=== PATIENT | female | born 1965 | race Caucasian/White ===

== ENCOUNTER 2018-01-10 16:03 | Outpatient (CLI) | payer OTHER ==
[2018-01-10 18:52] LABS: BASOPHILS # (AUTO) 0.1 10^3/uL (0.0-0.1); BASOPHILS % (AUTO) 0.9 %; EOSINOPHILS # (AUTO) 0.1 10^3/uL (0.0-0.7); EOSINOPHILS % (AUTO) 2.5 %; HGB - HEMOGLOBIN 12.6 g/dL (12.0-16.0); LYMPHOCYTES # (AUTO) 2.5 10^3/uL (1.5-3.5); LYMPHOCYTES % (AUTO) 42.2 %; MEAN CORPUSCULAR HEMOGLOBIN 27.6 pg (27.0-31.0); MEAN CORPUSCULAR HGB CONC 32.5 g/dL (32.0-36.0); MEAN CORPUSCULAR VOLUME 84.9 fL (81.0-99.0); MEAN PLATELET VOLUME 7.4 fL (7.9-10.8); MONOCYTES # (AUTO) 0.4 10^3/uL (0.0-1.0); MONOCYTES % (AUTO) 7.3 %; NEUTROPHILS # (AUTO) 2.7 10^3/uL (1.5-6.6); NEUTROPHILS % (AUTO) 47.1 %; PLT - PLATELET COUNT 379 10^3/uL (130-450); RED BLOOD COUNT 4.57 10^6/uL (4.20-5.40); RED CELL DISTRIBUTION WIDTH 14.8 % (12.0-15.0); WHITE BLOOD COUNT 5.8 x10^3/uL (4.8-10.8)
[2018-01-10 19:11] LABS: ALBUMIN 4.3 g/dL (3.2-5.5); ALBUMIN/GLOBULIN RATIO 1.3 (1.0-2.2); ALKALINE PHOSPHATASE 44 IU/L (42-121); ALT ALANINE AMINOTRANSFERASE 30 IU/L (10-60); AST ASPARTATE AMINOTRANSFERASE 22 IU/L (10-42); BILIRUBIN,TOTAL 0.3 mg/dL (0.2-1.0); BUN - BLOOD UREA NITROGEN 16 mg/dL (6-20); CALCIUM 9.4 mg/dL (8.5-10.3); CARBON DIOXIDE - CO2 26 mmol/L (21-32); CHLORIDE 103 mmol/L (101-111); CHOL/HDL RATIO 3.8 (<4.4); CHOLESTEROL 226 mg/dL; CREATININE 0.7 mg/dL (0.4-1.0); GFR - MDRD 87 (>89); GLUCOSE 94 mg/dL (70-100); HDL CHOLESTEROL 60 mg/dL; LDL CHOLESTEROL,CALCULATED 147 mg/dL; LDL/HDL RATIO 2.5 (<4.4); SODIUM 137 mmol/L (135-145); TOTAL PROTEIN 7.6 g/dL (6.7-8.2); VLDL CHOLESTEROL 19 mg/dL
[2018-01-10 19:28] LABS: HB2 TOTAL 13.5 g/dL; HEMOGLOBIN A1C 0.49 g/dL; HEMOGLOBIN A1C % 5.5 % (4.6-6.2)
== END 2018-01-10 16:04 ==
LOC: LAB.WCP 16:03
PROVIDERS: ATTEND Family Medicine
DX: Z00.00 Encounter for general adult medical examination without abnormal findings (principal)
CPT/HCPCS: 36415; 80053; 80061; 83036; 83721; 84443; 85025

== ENCOUNTER 2018-02-16 12:40 | Outpatient (CLI) | payer OTHER ==
--- NOTE | 2018-02-16 14:53 | Mammography Report ---
DIAGNOSTIC BILATERAL MAMMOGRAM: 02/16/2018 CLINICAL INDICATION: A 53-year-old with a history of bilateral benign biopsies, tenderness on clinical exam, right lower inner quadrant. COMPARISON: 01/24/2016, 01/04/2015, 01/01/2014. TECHNIQUE: Routine CC, laterally exaggerated CC, MLO views, right true lateral view. FINDINGS: The patient could not identify a site of maximal tenderness at the time of the examination, so no marker was placed. The breasts again demonstrate heterogeneously dense fibroglandular parenchyma bilaterally. Coarse and punctate, typically benign calcifications are present. Biopsy changes in both breasts are stable. No suspicious masses, clustered microcalcifications, or regions of architectural distortion are identified. Specifically, no mammographic abnormality is seen in the 4 o'clock position of the right breast 2 cm from the nipple at the site of tenderness noted on the requisition. IMPRESSION: BENIGN FINDINGS. RECOMMENDATION: Routine annual screening unless otherwise clinically indicated. BIRADS CATEGORY - 2 benign findings. STANDARD QUALIFYING STATEMENTS: 1. This examination was reviewed with the aid of Computer-Aided Detection (CAD). 2. A negative or benign imaging report should not delay biopsy if clinically suspicious findings are present. Consider surgical consultation if warranted. More than 5% of cancers are not identified by imaging. 3. Dense breasts may obscure an underlying neoplasm. TD: 02/16/2018 14:52
== END 2018-02-16 12:41 | disposition home or self-care (01) ==
LOC: DI 12:40
PROVIDERS: ATTEND Family Medicine
DX: N64.4 Mastodynia (principal)
CPT/HCPCS: 77066

== ENCOUNTER 2018-07-08 07:02 | Outpatient (CLI) | payer OTHER ==
[2018-07-08 13:07] LABS: HB2 TOTAL 14.2 g/dL; HEMOGLOBIN A1C 0.5 g/dL; HEMOGLOBIN A1C % 5.4 % (4.6-6.2)
== END 2018-07-08 07:03 | disposition home or self-care (01) ==
LOC: LAB.WCP 07:02
PROVIDERS: ATTEND Family Medicine
DX: R73.01 Impaired fasting glucose (principal)
CPT/HCPCS: 36415; 83036

== ENCOUNTER 2019-02-22 07:13 | Outpatient (CLI) | payer OTHER ==
[2019-02-22 13:32] LABS: BASOPHILS % (AUTO) 0.9 %; EOSINOPHILS # (AUTO) 0.2 10^3/uL (0.0-0.7); EOSINOPHILS % (AUTO) 4.4 %; HGB - HEMOGLOBIN 13.7 g/dL (12.0-16.0); LYMPHOCYTES # (AUTO) 2.1 10^3/uL (1.5-3.5); LYMPHOCYTES % (AUTO) 40.3 %; MEAN CORPUSCULAR HEMOGLOBIN 28.4 pg (27.0-31.0); MEAN CORPUSCULAR VOLUME 85.9 fL (81.0-99.0); MEAN PLATELET VOLUME 8.2 fL (7.9-10.8); MONOCYTES # (AUTO) 0.4 10^3/uL (0.0-1.0); MONOCYTES % (AUTO) 8.1 %; NEUTROPHILS # (AUTO) 2.5 10^3/uL (1.5-6.6); NEUTROPHILS % (AUTO) 46.3 %; PLT - PLATELET COUNT 344 10^3/uL (130-450); RED BLOOD COUNT 4.84 10^6/uL (4.20-5.40); RED CELL DISTRIBUTION WIDTH 14.6 % (12.0-15.0); WHITE BLOOD COUNT 5.3 x10^3/uL (4.8-10.8)
[2019-02-22 14:04] LABS: CALCIUM 9.3 mg/dL (8.5-10.3); CARBON DIOXIDE - CO2 25 mmol/L (21-32); CHLORIDE 105 mmol/L (101-111); GLUCOSE 92 mg/dL (70-100); SODIUM 138 mmol/L (135-145)
[2019-02-22 14:49] LABS: ALBUMIN 4.2 g/dL (3.2-5.5); ALBUMIN/GLOBULIN RATIO 1.5 (1.0-2.2); ALKALINE PHOSPHATASE 46 IU/L (42-121); ALT ALANINE AMINOTRANSFERASE 28 IU/L (10-60); AST ASPARTATE AMINOTRANSFERASE 22 IU/L (10-42); BILIRUBIN,TOTAL 0.8 mg/dL (0.2-1.0); BUN - BLOOD UREA NITROGEN 24 mg/dL (6-20); CHOL/HDL RATIO 3.9 (<4.4); CHOLESTEROL 241 mg/dL; CREATININE 0.7 mg/dL (0.4-1.0); GFR - MDRD 87 (>89); HDL CHOLESTEROL 62 mg/dL; LDL CHOLESTEROL,CALCULATED 159 mg/dL; LDL/HDL RATIO 2.6 (<4.4); VLDL CHOLESTEROL 20 mg/dL
[2019-02-22 14:55] LABS: HB2 TOTAL 14.3 g/dL; HEMOGLOBIN A1C 0.52 g/dL; HEMOGLOBIN A1C % 5.5 % (4.6-6.2)
== END 2019-02-22 07:14 | disposition home or self-care (01) ==
LOC: LAB.WCP 07:13
PROVIDERS: ATTEND Family Medicine
DX: Z00.00 Encounter for general adult medical examination without abnormal findings (principal); R73.01 Impaired fasting glucose; Z13.89 Encounter for screening for other disorder
CPT/HCPCS: 36415; 80053; 80061; 83036; 83721; 84443; 85025; 86762; 86765; 86787

== ENCOUNTER 2019-03-03 13:02 | Outpatient (CLI) | payer OTHER ==
--- NOTE | 2019-03-06 09:19 | Mammography Report ---
Reason: SCREENING MAMMO Procedure Date: 03/03/2019 Accession Number: [id number] / [id number] Procedure: ALEXANDRO - Screening Mammo Dig Bilat CPT Code: FULL RESULT: EXAM: Screening Mammo Dig Bilat DATE: 03/03/2019 3:24 PM CLINICAL HISTORY: Routine screening. No reported personal history of breast cancer. Family history of breast cancer in mother at age 65 a paternal grandmother age 40 and paternal aunt age 68. TECHNIQUE: (B) - Bilateral CC and MLO views were obtained. COMPARISON: 02/16/2018 through 01/01/2014 PARENCHYMAL PATTERN: (D) - The breasts demonstrate heterogeneously dense fibroglandular parenchyma bilaterally. FINDINGS: Right breast: Stable biopsy marker in the central lateral breast. Stable grouping of mixed coarse and amorphous calcifications in the upper outer breast. There has been interval waning of oval partially circumscribed/partially obscured margin breast masses over serial mammograms consistent with involuting cysts. No suspicious masses, calcifications or areas of distortion. Left breast: There are no suspicious masses, calcifications, or areas of distortion. IMPRESSION: Right breast: Benign. BI-RADS Category 2. Recommend annual screening mammography. Left breast: Negative. BI-RADS Category 1 recommend annual screening mammography. RECOMMENDATION: (ANNUAL) - Recommend routine annual screening mammography. Given family history, patient may be at increased risk for development of breast cancer. Formal risk assessment with a genetic counselor should be considered; patient may benefit from advanced screening practices and/or risk reduction strategies if there is sufficient assessed risk. BI-RADS CATEGORY: (2) - Benign Findings. STANDARD QUALIFYING STATEMENTS: 1. This examination was not reviewed with the aid of Computer-Aided Detection (CAD). 2. A negative or benign imaging report should not preclude biopsy if clinically suspicious findings are present. 3. Dense breasts may obscure an underlying neoplasm. 4. This examination was reviewed without the aid of 3D breast imaging (tomosynthesis).
== END 2019-03-03 13:03 | disposition home or self-care (01) ==
LOC: DI 13:02
DX: Z12.31 Encounter for screening mammogram for malignant neoplasm of breast (principal); Z80.3 Family history of malignant neoplasm of breast
CPT/HCPCS: 77067

== ENCOUNTER 2019-03-03 13:03 | Outpatient (CLI) | payer OTHER ==
--- NOTE | 2019-03-07 14:24 | DEXA Report ---
Reason: BONE DISORDER Procedure Date: 03/03/2019 Accession Number: [id number] / [id number] Procedure: DEX - Dexa Spine and/or Hip CPT Code: FULL RESULT: EXAM: Dexa Spine and/or Hip DATE: 03/03/2019 2:04 PM CLINICAL HISTORY: BONE DISORDER TECHNIQUE: Dual energy x-ray absorptiometry (DXA) was performed on a [employer] System. Regions measured are the AP Spine, femoral neck, and if needed forearm. COMPARISON: None. In accordance with the International Society for Clinical Densitometry (ISCD) guidelines, data from previous exams may be reanalyzed using current recommendations and techniques. This is done to allow a more accurate basis for comparison with the current study. FINDINGS: The data for the lumbar spine is as follows: BMD (g/cm/cm) T-SCORE Z-SCORE REGION L1 1.151 0.2 0.8 L2 1.206 0.1 0.7 L3 1.206 0.1 0.7 L4 1.134 -0.6 0.1 TOTAL 1.172 -0.1 0.6 NOTE: All evaluable vertebrae are used for classification The data for the hip is as follows: BMD (g/cm/cm) T-SCORE Z-SCORE REGION Neck 0.922 -0.8 0.1 TOTAL 1.000 -0.1 0.5 NOTE: The femoral neck or total proximal femur, whichever is lowest, is used for classification. IMPRESSION: THE WHO CLASSIFICATION BASED ON THE INTERNATIONAL REFERENCE STANDARD IS NORMAL. THE FRACTURE RISK IS NOT INCREASED. RECOMMENDATION: Patients with diagnosis of osteoporosis or osteopenia should have regular bone mineral density assessment. For those eligible for Medicare, routine testing is allowed once every 2 years. Testing frequency can be increased for patients who have rapidly progressing disease or for those who are receiving medical therapy to restore bone mass. COMMENT: World Health Organization (WHO) definitions for osteoporosis and osteopenia: NORMAL BMD: T-score at -1.0 or higher, fracture risk is low OSTEOPENIA BMD: T-score between -1.0 and -2.5, fracture risk is increased. OSTEOPOROSIS BMD: T-score at -2.5 or lower, fracture risk is high. National Osteoporosis Foundation recommends: 1. Obtain adequate dietary calcium (at least 1200 mg per day) and vitamin D (400-800 international units per day). 2. Participate, as appropriate, in regular weightbearing and muscle-strengthening exercise. 3. Avoid tobacco use and reduce alcohol and caffeine intake. 4. For more detailed information see the website at www.NOF.org.
== END 2019-03-03 13:04 | disposition home or self-care (01) ==
LOC: DI 13:03
PROVIDERS: ATTEND Family Medicine
DX: M89.9 Disorder of bone, unspecified (principal)
CPT/HCPCS: 77080

== ENCOUNTER 2019-10-30 08:00 | Outpatient (CLI) | payer OTHER ==
[2019-10-30 12:12] LABS: BASOPHILS # (AUTO) 0.1 10^3/uL (0.0-0.1); BASOPHILS % (AUTO) 1.2 %; EOSINOPHILS # (AUTO) 0.2 10^3/uL (0.0-0.7); EOSINOPHILS % (AUTO) 3.8 %; HGB - HEMOGLOBIN 13.5 g/dL (12.0-16.0); LYMPHOCYTES # (AUTO) 1.8 10^3/uL (1.5-3.5); LYMPHOCYTES % (AUTO) 30.9 %; MEAN CORPUSCULAR HEMOGLOBIN 28.7 pg (27.0-31.0); MEAN CORPUSCULAR HGB CONC 32.5 g/dL (32.0-36.0); MEAN CORPUSCULAR VOLUME 88.5 fL (81.0-99.0); MEAN PLATELET VOLUME 9.4 fL (7.9-10.8); MONOCYTES # (AUTO) 0.7 10^3/uL (0.0-1.0); MONOCYTES % (AUTO) 11.3 %; NEUTROPHILS # (AUTO) 3.1 10^3/uL (1.5-6.6); NEUTROPHILS % (AUTO) 52.6 %; PLT - PLATELET COUNT 354 10^3/uL (130-450); RED CELL DISTRIBUTION WIDTH 14.1 % (12.0-15.0); WHITE BLOOD COUNT 5.9 x10^3/uL (4.8-10.8)
[2019-10-30 12:17] LABS: HB2 TOTAL 13.4 g/dL; HEMOGLOBIN A1C 0.55 g/dL; HEMOGLOBIN A1C % 5.9 % (4.6-6.2)
[2019-10-30 12:20] LABS: ALBUMIN 4.2 g/dL (3.2-5.5); ALBUMIN/GLOBULIN RATIO 1.3 (1.0-2.2); BILIRUBIN,TOTAL 0.8 mg/dL (0.2-1.0); CALCIUM 9.1 mg/dL (8.5-10.3); CREATININE 0.6 mg/dL (0.4-1.0); TOTAL PROTEIN 7.4 g/dL (6.7-8.2)
== END 2019-10-30 23:59 | disposition home or self-care (01) ==
LOC: LAB.WCP 08:00
PROVIDERS: ATTEND Family Medicine
DX: C54.1 Malignant neoplasm of endometrium (principal); R73.01 Impaired fasting glucose
CPT/HCPCS: 36415; 80053; 83036; 85025

== ENCOUNTER 2020-05-07 14:30 | Outpatient (CLI) | payer OTHER ==
--- NOTE | 2020-05-07 15:06 | SLEEP CARE CONSULTATION ---
Information from patient questionnaire entered by Meg Mccurdy. I have reviewed and concur with the information entered by Meg Mccurdy. This document represents the service I personally performed and the decisions made by me, Milan Garcia MD, [facility]. History of Present Illness Service Date and Time: 05/07/2020 1430 Reason for Visit: New patient Chief Complaint: reports: Unrefreshed sleep, Snoring, Observed pauses in breathing, Frequent awakenings at night Duration of Symptoms: 20-25 years Usual bedtime: 2100 Time it takes to fall asleep: 15 minutes Snores at night: Yes Observed to quit breathing while asleep: Yes Sleeps alone due to snoring: No Number of times waking at night: 2-3 Reasons for waking at night: reports: Bathroom Toss, Turn, or Twitch while sleeping: Yes Recalls having dreams: Yes (lots) Usually gets out of bed at: 0500 Feels refreshed in the morning: No (sometimes) Morning headache: Yes (occassionally) Sleepy or fatigued during the day: Yes (sometimes) Ever fallen asleep while driving: Yes Takes day naps: No Dreams during day naps: Yes Prior sleep studies: Yes Year and Where: [facility] Additional HPI information: I had the pleasure of seeing Ms. Figueroa today regarding the possibility of her having a sleep disorder. As you know, she is a 55 year old lady who complains of loud snore, observed apneas, frequent awakenings, and unrefreshed sleep for many years. She had an in-laboratory polysomnography about 15 years ago at [facility] but never was informed of the results. She occasionally wakes up from her own snore but never from choking. She complains of excessive daytime sleepiness. Her [place] Sleepiness Scale score is 8. Her sister and brother have obstructive sleep apnea-hypopnea and use CPAPs. She had septoplasty but still has occasional nasal congestion at night requiring mouth breathing. 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 Patient is and lives in [place]. Have you smoked in the past 12 months: No Alcohol use: Yes Alcohol amount and frequency: 1-2 for special occassions Caffeine use: Yes Caffeine amount and frequency: 1 cup coffee/day Family History Family history of sleep disordered breathing: Yes Family Hx Sleep Apnea: Father: Snoring, Sibling: Snoring Allergies and Home Medications Drug allergies reviewed: Yes Home medication list reviewed: Yes Review of Systems Weight gain over past 5 years: 2-3 Cardiovascular: denies: high blood pressure, palpitations, chest pain, irregular heart rate or pulse, leg or foot swelling, have to sleep sitting up, other Respiratory: reports: other (chronic sinus) Gastrointestinal: denies: heartburn, difficulty swallowing, nausea, vomitting, diarrhea, abdominal pain, other Urinary: denies: incontinence, frequency, urgency, impotence, other Neurological: reports: headaches Psychiatric: denies: Attention Deficit Hyperactivity, anxiety, depression, mood disorder, claustrophobia, other Ear/Nose/Throat: reports: sinus problems, wisdom teeth removed Endocrine: reports: too hot or cold Musculoskeletal: denies: joint pain, neck pain, back pain, joint swelling, muscle pain or cramping, mobility problems, other Physical Exam Vital signs obtained and entered by: Detailed physical exam was not performed to comply with the COVID-19 precau Height: 5 ft 6 in Weight: 160 lb Body Mass Index: 25.8 BMI Classification: Overweight Impression and Plan IMPRESSION: 1. Obstructive Sleep Apnea-Hypopnea Syndrome, as suggested by history of loud and irregular snoring, observed cessation of breath while asleep, unrefreshed sleep, and daytime hypersomnolence. Narrow oropharynx and obesity are common predisposing factors for obstructive sleep apnea-hypopnea syndrome. Pathophys iology of sleep-disordered breathing was discussed. I recommend proceeding to polysomnography to confirm the diagnosis and to assess severity. If she has significant sleep disordered breathing, a manual CPAP titration study will also be performed to find the optimal treatment pressure. I informed the patient of what the sleep studies involve and after some discussion, she agreed to proceed. Plan: 1. Schedule an in-laboratory polysomnography + manual CPAP titration study. 2. Avoid long distance driving or when feeling sleepy. 3. Avoid alcohol, sedative and muscle relaxant around bedtime. 4. Attempt to lose weight. 5. Return in 1 to 2 weeks after the study to discuss results and initiate therapy. Time Spent with Patient (minutes): 15
== END 2020-05-07 14:31 | disposition home or self-care (01) ==
LOC: SC 14:30
PROVIDERS: ATTEND Internal Medicine Pulmonary Disease
DX: G47.10 Hypersomnia, unspecified (principal); R06.83 Snoring; G47.8 Other sleep disorders; R06.81 Apnea, not elsewhere classified; E66.3 Overweight; Z68.25 Body mass index [BMI] 25.0-25.9, adult
CPT/HCPCS: 99203; 99212

== ENCOUNTER → 2020-06-07 | Outpatient (CLI) | payer OTHER | LOC: SC 19:30 | PROVIDERS: ATTEND Internal Medicine Pulmonary Disease | DX: G47.33 Obstructive sleep apnea (adult) (pediatric) (principal) | CPT/HCPCS: 95806 ==

== ENCOUNTER 2020-06-18 14:12 | Outpatient (CLI) | payer OTHER ==
--- NOTE | 2020-06-18 14:40 | SLEEP CARE CONSULTATION ---
Information from patient questionnaire entered by Kati Pennington. I have reviewed and concur with the information entered by Kati Pennington. This document represents the service I personally performed and the decisions made by me, Milan Garcia MD, [facility]. History of Present Illness Service Date and Time: 06/18/2020 1412 Initial [place] Sleepiness Scale score: 8 (in 2019) Additional HPI information: HPI: Ms. Figueroa returns for follow up of the home sleep apnea test (HSAT) she had on 06/07/2020. The test showed moderate obstructive sleep apnea-hypopnea with an AHI of 21 and tyler oxygen saturation of 81%. The respiratory events occurred almost exclusively during supine sleep. Heart rate was within normal limits. The patient was informed of these findings. I explained to her the pathophysiology behind obstructive sleep apnea. We then spent quite a bit of time discussing different treatment options. For mild obstructive sleep apnea, surgery and oral appliance are alternatives to nasal CPAP therapy but in moderate or severe cases, nasal CPAP is the most effective and reliable treatment. After some discussion, she opted to go with the nasal CPAP therapy. I explained to her how CPAP machine works and what to expect when using the machine. She is encouraged to use CPAP every night especially in the first 2 to 3 nights in order to get used to it. She is somewhat familiar with the treatment because her brother and sister both use CPAPs. Sleep Study - Results Type of Sleep Study: Home sleep study Prior sleep studies: Yes Year and Where: [facility] Allergies and Home Medications Drug allergies reviewed: Yes Home medication list reviewed: Yes Review of Systems Review of systems same as previous: Yes Physical Exam Vital signs obtained and entered by: To minimize the risk of COVID-19 exposure, detailed exam was not performed. Height: 5 ft 6 in Impression and Plan IMPRESSION: 1. Obstructive Sleep Apnea-Hypopnea Syndrome, moderate, associated with mild hypoxemia. Most likely this is the cause of the patients symptoms of unrefreshed sleep, and excessive daytime sleepiness. As mentioned above, the patient will be started on autoCPAP set at 4 - 12 cmH2O. Depending on her response and compliance she may be brought back for an overnight CPAP titration study. PLAN: 1. Prescription made for an autoCPAP with heated humidifier and related supplies. 2. Be careful when driving until her sleepiness resolves completely on nasal CPAP therapy. 3. Avoid sleeping supine if not using the CPAP. 4. Return in one month for follow up. I will assess her response and compliance at that time. Visit Type: In Office Provider Statement: I spent 100% of the Face to Face Visit with the patient with greater than 50% spent counseling the patient and coordination of care.
== END 2020-06-18 14:13 | disposition home or self-care (01) ==
LOC: SC 14:12
PROVIDERS: ATTEND Internal Medicine Pulmonary Disease
DX: G47.33 Obstructive sleep apnea (adult) (pediatric) (principal)
CPT/HCPCS: 99212; 99213

== ENCOUNTER 2020-08-27 09:28 | Outpatient (CLI) | payer OTHER ==
--- NOTE | 2020-08-27 12:49 | SLEEP CARE CONSULTATION ---
Information from patient questionnaire entered by Kati Pennington. I have reviewed and concur with the information entered by Kati Pennington. This document represents the service I personally performed and the decisions made by me, Milan Garcia MD, [facility]. History of Present Illness Service Date and Time: 08/27/2020927 Previous diagnosis: Moderate, Obstructive Sleep Apnea-Hypopnea Syndrome AHI: 21.0 (in 2019) Reason for follow up: first compliance Equipment type: CPAP Equipment obtained from: Other ([employer]) Prior sleep studies: Yes Year and Where: [facility], 2019 - [facility] HPI additional information: HPI: Ms. Figueroa returns today to follow up on the nasal CPAP therapy. She was diagnosed to have moderate obstructive sleep apnea-hypopnea syndrome. The patient wears with a ResMed F20 full face mask. [employer] is her durable medical supplier. She reports using the device nightly and all through the night. The compliance data show usage in 30 out of the past 30 nights, averaging 6.7 hours a night. The > 4 hour compliance rate for the one month period between 07/08 and 08/06/2020 is 93%. She complained of no particular problem with the device such as soreness on the face, dry nose, epistaxis, nasal congestion or headache. She thinks that the pressure of 4 12 cmH2O is comfortable. On the CPAP therapy she notices improvement in her sleep quality, and that she wakes up feeling fresher in the morning and more awake/alert during the day. The [place] Sleepiness Scale score 2. The average residual AHI is 9.4; and air leak, 0.4 L/min. The residual AHI increased the past month and was half central and half obstructive. The 90th percentile pressure is 11 cmH2O. CPAP Compliance Data - Data Reviewed with Patient Average duration of nightly device use: 6.7 Compliance rate %: 93 (initial 30 days)(last 30 - 67%) Current pressure setting (cmH2O): 4-12 Humidity settin Average residual AHI: 9.4 Subjective Initial [place] Sleepiness Scale score: 8 (in 2019) Allergies and Home Medications Drug allergies reviewed: Yes Home medication list reviewed: Yes Review of Systems Review of systems same as previous: Yes Physical Exam Vital signs obtained and entered by: To minimize the risk of COVID-19 exposure, detailed exam was not performed. Height: 5 ft 6 in Weight: 160 lb Body Mass Index: 25.8 BMI Classification: Overweight Impression and Plan IMPRESSION: 1. Obstructive Sleep Apnea-Hypopnea Syndrome, moderate, with the patient doing well on nasal CPAP therapy. She has good compliance and significant clinical improvement. The current pressure appears ineffective but comfortable. The increase in the residual AHI most likely is due to her taking opioid pain medication for her leg. However, because half of the residual apneas are obstructive, I will raise the pressure range. Once she no longer requires the pain medication, the central apneas probably will subside. PLAN: 1. Raise autoCPAP to 6 - 15 cmH2O. 2. Return for a follow up in 1 month to recheck the residual AHI. If still high, a manual CPAP/BiPAP titration study will be ordered. Follow up recommended for: Weight management Visit Type: In Office Time Spent with Patient (minutes): 15 Provider Statement: I spent 100% of the Face to Face Visit with the patient with greater than 50% spent counseling the patient and coordination of care.
== END 2020-08-27 09:29 | disposition home or self-care (01) ==
LOC: SC 09:28
PROVIDERS: ATTEND Internal Medicine Pulmonary Disease
DX: G47.33 Obstructive sleep apnea (adult) (pediatric) (principal); E66.3 Overweight; Z68.25 Body mass index [BMI] 25.0-25.9, adult
CPT/HCPCS: 99212; 99213

== ENCOUNTER 2020-09-24 10:05 | Outpatient (CLI) | payer OTHER ==
--- NOTE | 2020-09-24 11:00 | SLEEP CARE CONSULTATION ---
Information from patient questionnaire entered by Kati Pennington. I have reviewed and concur with the information entered by Kati Pennington. This document represents the service I personally performed and the decisions made by me, Milan Garcia MD, [facility]. History of Present Illness Service Date and Time: 09/24/2020 1005 Previous diagnosis: Moderate, Obstructive Sleep Apnea-Hypopnea Syndrome AHI: 21.0 (in 2019) Reason for follow up: one month (with pressure change) Equipment type: CPAP Equipment obtained from: Other ([facility] [facility]) Mask style: Full face Prior sleep studies: Yes Year and Where: [facility], 2019 - [facility] ([facility]) HPI additional information: HPI: Ms. Figueroa returns today to follow up on the nasal CPAP therapy after the pressure increase a month ago. She was diagnosed to have moderate obstructive sleep apnea-hypopnea syndrome. The patient wears with a ResMed F20 full face mask. [employer] is her durable medical supplier. She reports using the device nightly but not all night because of her recent foot surgery. The compliance data show usage in 29 out of the past 30 nights, averaging 3.9 (was 6.7) hours a night. The > 4 hour compliance rate for the one month period 27%. She complained of dry mouth but no particular problem with the device such as soreness on the face, epistaxis, nasal congestion or headache. Her heated humidifier still is set at the factory setting of auto and 4. She thinks that the pressure of 6 15 (raised from 4 12) cmH2O is comfortable. On the CPAP therapy she notices improvement in her sleep quality, and that she wakes up feeling fresher in the morning and more awake/alert during the day. The [place] Sleepiness Scale score 2. The average residual AHI is 5.8 (was 9.4); and air leak, 0.1 L/min. The residual AHI is mostly obstructive. The 90th percentile pressure is 11 cmH2O. CPAP Compliance Data - Data Reviewed with Patient Average duration of nightly device use: 3 hr 4 min Compliance rate %: 23 Current pressure setting (cmH2O): 6-15 Humidity settin Average residual AHI: 5.8 Subjective Patient concerns: reports: mask discomfort, dry mouth, nose, throat Current pressure setting perceived as: comfortable Initial [place] Sleepiness Scale score: 8 (in 2020) Current [place] Sleepiness Scale score: 2 Allergies and Home Medications Drug allergies reviewed: Yes Home medication list reviewed: Yes Review of Systems Review of systems same as previous: Yes Physical Exam Vital signs obtained and entered by: To minimize the risk of COVID-19 exposure, detailed exam was not performed. Height: 5 ft 6 in Weight: 150 lb Body Mass Index: 24.2 BMI Classification: Healthy weight Impression and Plan IMPRESSION: 1. Obstructive Sleep Apnea-Hypopnea Syndrome, moderate, with the patient doing fairly well on nasal CPAP therapy. She has poor compliance but significant clinical improvement. The current pressure appears much more effective and comfortable. The increase in the residual AHI most likely is due to her taking opioid pain medication for her leg. However, because she has not been using the CPAP adequately, I will not change the pressure at this time. I will recheck in one month. PLAN: 1. Leave autoCPAP at 6 - 15 cmH2O. 2. Heated humidifier turned up from 4 to 5 in manual mode. 3. Return for a follow up in 1 month to recheck the residual AHI. If still high, a manual CPAP/BiPAP titration study will be ordered. Visit Type: In Office Time Spent with Patient (minutes): 15 Provider Statement: I spent 100% of the Face to Face Visit with the patient with greater than 50% spent counseling the patient and coordination of care.
== END 2020-09-24 10:06 | disposition home or self-care (01) ==
LOC: SC 10:05
PROVIDERS: ATTEND Internal Medicine Pulmonary Disease
DX: G47.33 Obstructive sleep apnea (adult) (pediatric) (principal)
CPT/HCPCS: 99212; 99213

== ENCOUNTER 2020-10-28 09:49 | Outpatient (CLI) | payer OTHER ==
--- NOTE | 2020-10-28 12:47 | SLEEP CARE CONSULTATION ---
Information from patient questionnaire entered by Kati Penningtno. I have reviewed and concur with the information entered by Kati Pennington. This document represents the service I personally performed and the decisions made by me, Milan Garcia MD, [facility]. History of Present Illness Service Date and Time: 10/28/2020 0949 Previous diagnosis: Moderate, Obstructive Sleep Apnea-Hypopnea Syndrome AHI: 21.0 (in 2019) Reason for follow up: one month Equipment type: CPAP Equipment obtained from: Other ([email or web address] [facility]) Mask style: Full face Mask brand: Resmed (F-20) Prior sleep studies: Yes Year and Where: [facility], 2019 - [facility] ([facility]) HPI additional information: HPI: Ms. Figueroa returns today to follow up on the nasal CPAP therapy after the pressure increase a month ago. She was diagnosed to have moderate obstructive sleep apnea-hypopnea syndrome. The patient wears with a ResMed F20 full face mask. [employer] is her durable medical supplier. She asked to return for a 1-month follow up because her residual AHI was still high at 5.8. She continues to use the device every night and all night. The compliance data show usage in 30 out of the past 30 nights, averaging 5 (was 6.7) hours a night. The > 4 hour compliance rate for the one month period 83%. She complained of no particular problem with the device such as soreness on the face, epistaxis, nasal congestion or headache. She thinks that the pressure of 6 15 (raised from 4 12) cmH2O is comfortable. On the CPAP therapy she notices improvement in her sleep quality, and that she wakes up feeling fresher in the morning and more awake/alert during the day. The [place] Sleepiness Scale score 1. No snore while wearing the CPAP. The average residual AHI is 6.2 (was 9.4), mostly obstructive apneas; and air leak, 0 L/min. The residual AHI is mostly obstructive. The 90th percentile pressure is 12.8 cmH2O. She has quit taking the pain medication for her leg. CPAP Compliance Data - Data Reviewed with Patient Average duration of nightly device use: 5 hr 2 min Compliance rate %: 83 Current pressure setting (cmH2O): 6-15 Humidity settin Average residual AHI: 6.2 Subjective Initial [place] Sleepiness Scale score: 8 (in 2019) Current [place] Sleepiness Scale score: 1 Allergies and Home Medications Drug allergies reviewed: Yes Home medication list reviewed: Yes Review of Systems Review of systems same as previous: Yes Physical Exam Vital signs obtained and entered by: To minimize the risk of COVID-19 exposure, detailed exam was not performed. Height: 5 ft 6 in Weight: 150 lb Body Mass Index: 24.2 BMI Classification: Healthy weight Impression and Plan IMPRESSION: 1. Obstructive Sleep Apnea-Hypopnea Syndrome, moderate, with the patient doing well on nasal CPAP therapy. She now has good compliance and significant clinical improvement. The current pressure appears slightly ineffective still but comfortable. For the slightly elevated residual AHI, I will increase the pressure range further. PLAN: 1. Increased autoCPAP to 8 - 15 cmH2O via the modem. 2. Return for a follow up in 2 months to recheck the residual AHI. If still high, a manual CPAP/BiPAP titration study will be ordered. Visit Type: In Office Time Spent with Patient (minutes): 15 Provider Statement: I spent 100% of the Face to Face Visit with the patient with greater than 50% spent counseling the patient and coordination of care.
== END 2020-10-28 09:50 | disposition home or self-care (01) ==
LOC: SC 09:49
PROVIDERS: ATTEND Internal Medicine Pulmonary Disease
DX: G47.33 Obstructive sleep apnea (adult) (pediatric) (principal)
CPT/HCPCS: 99212; 99213

== ENCOUNTER 2020-12-30 12:52 | Outpatient (CLI) | payer OTHER ==
--- NOTE | 2020-12-30 15:14 | SLEEP CARE CONSULTATION ---
Information from patient questionnaire entered by Kati Pennington. I have reviewed and concur with the information entered by Kati Pennington. This document represents the service I personally performed and the decisions made by me, Milan Garcia MD, [facility]. History of Present Illness Service Date and Time: 12/30/2020 1252 Previous diagnosis: Moderate, Obstructive Sleep Apnea-Hypopnea Syndrome AHI: 21.0 (in 2019) Reason for follow up: other (2 month) Equipment type: CPAP Equipment obtained from: Other ([employer]) Mask style: Full face Mask brand: Resmed (F-20) Prior sleep studies: Yes Year and Where: [facility], 2020 - [facility] ([facility]) HPI additional information: HPI: Ms. Figueroa was diagnosed to have moderate obstructive sleep apnea-hypopnea syndrome and prescribed with a CPAP device. She returned today for follow up of CPAP therapy after the pressure was raised on her last visit because the residual AHI was slightly high at 6.2. The patient purchased the device from [employer] and was fitted with a full face mask. She continues to use the device nightly and all through the night. She complains of slight soreness on her cheeks but no particular problem such as dry throat, aerophagia, sinus pain, or nasal congestion. She thinks that the current pressure of 8 - 15 cmH2O seems alright. The residual AHI is now 5.0. Average air leak is 0 L/minute. CPAP Compliance Data - Data Reviewed with Patient Average duration of nightly device use: 5 hr 18 min Compliance rate %: 88 (60 days) Current pressure setting (cmH2O): 8-15 Humidity settin Average residual AHI: 5.0 Subjective Missed days of use due to: reports: travel Initial [place] Sleepiness Scale score: 8 (in 2019) Current [place] Sleepiness Scale score: 1 Allergies and Home Medications Drug allergies reviewed: Yes Home medication list reviewed: Yes Review of Systems Review of systems same as previous: Yes Physical Exam Height: 5 ft 6 in Weight: 150 lb Body Mass Index: 24.2 BMI Classification: Healthy weight Impression and Plan IMPRESSION: 1. Obstructive Sleep Apnea-Hypopnea Syndrome, moderate, with patient continuing to have good CPAP compliance. The current pressure setting appears effective and comfortable. No adjustment is necessary today except for her to try a different full face mask. PLAN: 1. Continue with autoCPAP set at 8 - 15 cm H2O. 2. Try a Respironics DreamWear full face mask and ResMed F-30 full face mask. 3. Return for follow up in a year or earlier if there is any problem. Visit Type: In Office Time Spent with Patient (minutes): 15 Provider Statement: I spent 100% of the Face to Face Visit with the patient with greater than 50% spent counseling the patient and coordination of care.
== END 2020-12-30 12:53 | disposition home or self-care (01) ==
LOC: SC 12:52
PROVIDERS: ATTEND Internal Medicine Pulmonary Disease
DX: G47.33 Obstructive sleep apnea (adult) (pediatric) (principal)
CPT/HCPCS: 99212

== ENCOUNTER 2021-01-02 08:00 | Outpatient (CLI) | payer OTHER ==
[2021-01-02 18:23] LABS: BASOPHILS # (AUTO) 0.1 10^3/uL (0.0-0.1); BASOPHILS % (AUTO) 0.8 %; EOSINOPHILS # (AUTO) 0.2 10^3/uL (0.0-0.7); EOSINOPHILS % (AUTO) 2.4 %; HCT - HEMATOCRIT 42.4 % (37.0-47.0); HGB - HEMOGLOBIN 13.2 g/dL (12.0-16.0); LYMPHOCYTES # (AUTO) 2.6 10^3/uL (1.5-3.5); LYMPHOCYTES % (AUTO) 40.9 %; MEAN CORPUSCULAR HGB CONC 31.1 g/dL (32.0-36.0); MEAN CORPUSCULAR VOLUME 89.8 fL (81.0-99.0); MEAN PLATELET VOLUME 9.6 fL (7.9-10.8); MONOCYTES # (AUTO) 0.6 10^3/uL (0.0-1.0); MONOCYTES % (AUTO) 8.8 %; NEUTROPHILS % (AUTO) 46.9 %; PLT - PLATELET COUNT 380 10^3/uL (130-450); RED BLOOD COUNT 4.72 10^6/uL (4.20-5.40); RED CELL DISTRIBUTION WIDTH 14.2 % (12.0-15.0); WHITE BLOOD COUNT 6.4 x10^3/uL (4.8-10.8)
[2021-01-02 18:32] LABS: ALBUMIN 4.6 g/dL (3.2-5.5); ALBUMIN/GLOBULIN RATIO 1.4 (1.0-2.2); ALKALINE PHOSPHATASE 58 IU/L (42-121); ALT ALANINE AMINOTRANSFERASE 27 IU/L (10-60); AST ASPARTATE AMINOTRANSFERASE 21 IU/L (10-42); BILIRUBIN,TOTAL 0.6 mg/dL (0.2-1.0); BUN - BLOOD UREA NITROGEN 22 mg/dL (6-20); CALCIUM 9.8 mg/dL (8.5-10.3); CARBON DIOXIDE - CO2 26 mmol/L (21-32); CHLORIDE 101 mmol/L (101-111); CHOLESTEROL 258 mg/dL; CREATININE 0.7 mg/dL (0.4-1.0); GFR - MDRD 86 (>89); GLUCOSE 97 mg/dL (70-100); HDL CHOLESTEROL 64 mg/dL; LDL CHOLESTEROL,CALCULATED 171 mg/dL; LDL/HDL RATIO 2.7 (<4.4); POTASSIUM 3.8 mmol/L (3.5-5.0); SODIUM 135 mmol/L (135-145); TOTAL PROTEIN 7.8 g/dL (6.7-8.2); TRIGLYCERIDES 116 mg/dL; VLDL CHOLESTEROL 23 mg/dL
[2021-01-02 20:39] LABS: ESTIMATED AVERAGE GLUCOSE 111 mg/dL (70-100); HEMOGLOBIN A1c% 5.5 % (4.27-6.07)
== END 2021-01-02 23:59 | disposition home or self-care (01) ==
LOC: LAB.WCP 08:00
PROVIDERS: ATTEND Family Medicine
DX: Z00.00 Encounter for general adult medical examination without abnormal findings (principal); R73.01 Impaired fasting glucose
CPT/HCPCS: 36415; 80053; 80061; 83036; 83721; 85025

== ENCOUNTER 2021-02-17 09:04 | Outpatient (CLI) | payer OTHER ==
--- NOTE | 2021-02-18 13:23 | Mammography Report ---
BILATERAL DIGITAL SCREENING MAMMOGRAM 3D/2D: 02/17/2021 CLINICAL: Family history of breast cancer. Routine screening. Comparison is made to exams dated: 03/03/2019 mammogram, 02/16/2018 mammogram - [facility], and 01/24/2016 mammogram - [facility]. The tissue of both breasts is heterogeneousl y dense. This may lower the sensitivity of mammography. There are benign post operative findings and biopsy clip in the right breast. There also are benign post operative findings in the left breast. No significant masses, calcifications, or other findings are seen in either breast. There has been no significant interval change. IMPRESSION: BENIGN There is no mammographic evidence of malignancy. A 1 year screening mammogram is recommended. This exam was interpreted at Station ID: [id number]. NOTE: For mammograms, a report in lay terms will be sent to the patient. Approximately 15% of breast malignancies will not be visualized mammographically. In the management of a palpable breast mass, a negative mammogram must not discourage biopsy of a clinically suspicious lesion. Electronically Signed By: Talia arias/meghna:02/17/2021 14:07:05 ACR BI-RADS Category 2: Benign Finding(s) 3342F PARENCHYMAL PATTERN: (D) - The breast(s) demonstrate(s) heterogeneously dense fibroglandular ze medrano. BI-RADS CATEGORY: (2) - 2 RECOMMENDATION: (ANNUAL) - Recommend routine annual screening mammography. [id number] 1 year screening LATERALITY: (B)
== END 2021-02-17 09:05 | disposition home or self-care (01) ==
LOC: DI.N 09:04
DX: Z12.31 Encounter for screening mammogram for malignant neoplasm of breast (principal); Z80.3 Family history of malignant neoplasm of breast

== ENCOUNTER 2021-02-18 07:53 | Day surgery (SDC) | payer OTHER ==
[2021-02-18] MEDS ORDERED: LACTATED RINGERS 1,000 ML IV ONE ×2 (08:21→11:43)
--- NOTE | 2021-02-18 08:24 | ANESTHESIA ---
Pre-Anesthesia VS, & Labs - Diagnosis screening - Procedure Colonoscopy Vital Signs: Temp Pulse Resp BP Pulse Ox 36.6 C 72 16 127/88 H 100 02/18/21 08:03 02/18/21 08:03 02/18/21 08:03 02/18/21 08:03 02/18/21 08:03 Height: 5 ft 6 in Weight (kg): 71 kg Body Mass Index: 25.2 BMI Classification: Overweight - NPO >8 hours - Is Patient ?: No - Lab Results Lab results reviewed: Yes Home Medications and Allergies Calcium Carbonate [Calcium] 1 tab PO DAILY 12/19/14 Cholecalciferol (Vitamin D3) [Vitamin D-3] 1 tab PO DAILY 12/19/14 Cyanocobalamin (Vitamin B-12) [Vitamin B-12] 1 mg PO DAILY 12/19/14 Multivitamin [Multivitamins] 1 tab PO DAILY 12/19/14 Vitamin E (Dl,Tocopheryl Acet) [Vitamin E] 1 tab PO DAILY 12/19/14 Allergies/Adverse Reactions: Allergies Allergy/AdvReac Type Severity Reaction Status Date / Time Penicillins Allergy Unknown Verified 12/19/14 13:42 Sulfa (Sulfonamide Allergy Unknown Verified 12/19/14 13:42 Antibiotics) adhesive tape Allergy Rash Uncoded 12/19/14 13:42 Anes History & Medical History - Anesthetic History Anesthesia Complications: reports: No previous complications Family history of Anesthesia Complications: Denies Family history of Malignant Hyperthermia: Denies - Medical History Cardiovascular: reports: None Pulmonary: reports: None Gastrointestinal: reports: None Urinary: reports: None Musculoskeletal: reports: None Endocrine/Autoimmune: reports: None Skin: reports: Rosacea Smoking Status: Never smoker - Surgical History General: reports: Colonoscopy Eyes Ears Nose Throat (EENT): reports: Other Urologic: reports: Bladder surgery Gynecologic: reports: Hysterectomy Orthopedic: reports: Rotator cuff repair, Other Dermatologic: reports: Skin cancer surgery Exam General: Alert, Oriented x3, Cooperative, No acute distress Dental: WNL Mouth Openin Fingerbreadth Neck Mobility: Normal Mallampati classification: I Respiratory: Lungs clear, Normal breath sounds, No respiratory distress, No accessory muscle use Cardiovascular: Regular rate, Normal S1, Normal S2, No murmurs Plan Anesthesia Type: General, Total IV Consent for Procedure(s) Verified and Reviewed: Yes Code Status: Attempt Resuscitation ASA classification: 1-Healthy patient Is this case an emergency?: No
[2021-02-18] MEDS ORDERED: ePHEDrine 50 MG/ML VIAL IVP PRN (08:39)
[2021-02-18] MEDS ORDERED: NALOXONE 0.4 MG/ML VIAL IVP PRN (08:39)
[2021-02-18] MEDS ORDERED: fentaNYL 100 MCG/2 ML VIAL IVP PRN (08:39)
[2021-02-18] MEDS ORDERED: METOCLOPRAMIDE 10 MG/2 ML VIAL IVP PRN (08:39)
[2021-02-18] MEDS ORDERED: HYDROmorphone 0.5 MG/0.5 ML SYRINGE IVP PRN (08:39)
[2021-02-18] MEDS ORDERED: ONDANSETRON 4 MG/2 ML VIAL IVP PRN (08:39)
[2021-02-18] MEDS ORDERED: MORPHINE 2 MG/ML CARPUJECT IVP PRN (08:39)
[2021-02-18] MEDS ORDERED: ATROPINE ABBOJECT 1 MG/10 ML SYRINGE IVP PRN (08:39)
[2021-02-18] MEDS ORDERED: LACTATED RINGERS 1,000 ML IV SCH (09:00)
[2021-02-18] MEDS ORDERED: PROPOFOL 200 MG/20 ML VIAL IVP ONE (10:22)
[2021-02-18] MEDS ORDERED: LIDOCAINE-MPF 2% 5 ML VIAL ONE (10:22)
[2021-02-18 12:01] VITALS: BP 121/81
--- NOTE | 2021-02-18 12:51 | ANESTHESIA POST OP EVALUATION ---
Anesthesia Post Eval - Post Anesthesia Eval Vitals: Last Vital Signs Temp 36.1 C L 02/18/21 11:41 Pulse 66 02/18/21 12:01 Resp 23 02/18/21 12:01 BP 121/81 H 02/18/21 12:01 Pulse Ox 100 02/18/21 12:01 CV Function Including HR & BP: Stable Pain Control: Satisfactory Nausea & Vomiting: Negative Mental Status: Baseline Respiratory Status: Airway Patent Hydration Status: Satisfactory Anesthesia Complications: None
== END 2021-02-18 07:54 | disposition home or self-care (01) ==
LOC: SDS 07:53
PROVIDERS: ATTEND Surgery
DX: Z12.11 Encounter for screening for malignant neoplasm of colon (principal); K57.30 Diverticulosis of large intestine without perforation or abscess without bleeding; K64.8 Other hemorrhoids; Z83.71 Family history of colonic polyps; Z86.010 Personal history of colon polyps; H91.90 Unspecified hearing loss, unspecified ear; Z85.42 Personal history of malignant neoplasm of other parts of uterus; E66.3 Overweight; Z68.25 Body mass index [BMI] 25.0-25.9, adult; Z90.710 Acquired absence of both cervix and uterus
CPT/HCPCS: 45378; J7120

== ENCOUNTER 2021-09-12 15:07 | Outpatient (CLI) | payer OTHER ==
--- NOTE | 2021-09-12 16:24 | DEXA Report ---
PROCEDURE: Dexa Spine and/or Hip INDICATIONS: OSTEOPENIA TECHNIQUE: Dual energy x-ray absorptiometry (DXA) was performed on a [employer] System. Regions measur ed are the AP Spine, femoral neck, and if needed forearm. COMPARISON: 03/03/2019. FINDINGS: Lumbar Spine: Bone Mineral Density 1.201 g/cm/cm,T score 0.2. There is interval 2.5% increase in total lumbar sp ine bone mineral density. Left Hip: Bone Mineral Density 0.975 g/cm/cm,T score -0.3. There is interval 2.5% decrease in total left hip b one mineral density. Left Femoral Neck: Bone Mineral Density 0.934 g/cm/cm, T score -0.7. (T score greater or equal to -1.0: NORMAL) (T score from -1.1 to -2.4: OSTEOPENIA) (T score less than or equal to -2.5 to: OSTEOPOROSIS) Impression: Normal bone mineral density. Patients with diagnosis of osteoporosis or osteopenia should have regular bone mineral density assess ment. For those eligible for Medicare, routine testing is allowed once every 2 years. Testing frequ ency can be increased for patients who have rapidly progressing disease or for those who are receivin g medical therapy to restore bone mass. Reviewed by: Garrick Lemus MD on 09/12/2021 4:22 PM PST Approved by: Garrick Lemus MD on 09/12/2021 4:22 PM PST Station ID: [id number]
== END 2021-09-12 15:08 | disposition home or self-care (01) ==
LOC: DI 15:07
PROVIDERS: ATTEND Family Medicine
DX: M85.88 Other specified disorders of bone density and structure, other site (principal)

== ENCOUNTER 2023-01-06 07:26 | Outpatient (CLI) | payer OTHER ==
[2023-01-06 07:50] LABS: BASOPHILS # (AUTO) 0.1 10^3/uL (0.0-0.1); EOSINOPHILS # (AUTO) 0.2 10^3/uL (0.0-0.7); EOSINOPHILS % (AUTO) 2.9 %; HCT - HEMATOCRIT 42.8 % (37.0-47.0); HGB - HEMOGLOBIN 13.8 g/dL (12.0-16.0); LYMPHOCYTES # (AUTO) 2.3 10^3/uL (1.5-3.5); LYMPHOCYTES % (AUTO) 43.2 %; MEAN CORPUSCULAR HEMOGLOBIN 28.3 pg (27.0-31.0); MEAN CORPUSCULAR HGB CONC 32.2 g/dL (32.0-36.0); MEAN CORPUSCULAR VOLUME 87.9 fL (81.0-99.0); MEAN PLATELET VOLUME 9.1 fL (7.9-10.8); MONOCYTES # (AUTO) 0.5 10^3/uL (0.0-1.0); NEUTROPHILS # (AUTO) 2.3 10^3/uL (1.5-6.6); NEUTROPHILS % (AUTO) 43.7 %; PLT - PLATELET COUNT 349 10^3/uL (130-450); RED BLOOD COUNT 4.87 10^6/uL (4.20-5.40); RED CELL DISTRIBUTION WIDTH 14.3 % (12.0-15.0); WHITE BLOOD COUNT 5.2 x10^3/uL (4.8-10.8)
[2023-01-06 08:07] LABS: ALBUMIN 4.2 g/dL (3.2-5.5); ALBUMIN/GLOBULIN RATIO 1.1 (1.0-2.2); ALKALINE PHOSPHATASE 46 IU/L (42-121); ALT ALANINE AMINOTRANSFERASE 35 IU/L (10-60); AST ASPARTATE AMINOTRANSFERASE 25 IU/L (10-42); BILIRUBIN,TOTAL 1.1 mg/dL (0.2-1.0); BUN - BLOOD UREA NITROGEN 21 mg/dL (6-20); CALCIUM 9.2 mg/dL (8.5-10.3); CARBON DIOXIDE - CO2 27 mmol/L (21-32); CHLORIDE 105 mmol/L (101-111); CHOL/HDL RATIO 3.5 (<4.4); CHOLESTEROL 227 mg/dL; CREATININE 0.8 mg/dL (0.4-1.0); GFR - MDRD 73 (>89); GLUCOSE 106 mg/dL (70-100); HDL CHOLESTEROL 64 mg/dL; LDL CHOLESTEROL,CALCULATED 142 mg/dL; LDL/HDL RATIO 2.2 (<4.4); POTASSIUM 3.7 mmol/L (3.5-5.0); SODIUM 138 mmol/L (135-145); TOTAL PROTEIN 7.9 g/dL (6.7-8.2); TRIGLYCERIDES 103 mg/dL; VLDL CHOLESTEROL 21 mg/dL
[2023-01-06 08:19] LABS: THYROID STIMULATING HORMONE 2.5 uIU/mL (0.34-5.60)
[2023-01-06 11:19] LABS: ESTIMATED AVERAGE GLUCOSE 117 mg/dL (70-100); HEMOGLOBIN A1c% 5.7 % (4.27-6.07)
== END 2023-01-06 07:27 | disposition home or self-care (01) ==
LOC: LAB 07:26
PROVIDERS: ATTEND Physician Assistant
DX: R73.01 Impaired fasting glucose (principal); Z13.220 Encounter for screening for lipoid disorders
CPT/HCPCS: 36415; 80053; 80061; 83036; 83721; 84443; 85025

== ENCOUNTER 2023-02-01 09:37 | Outpatient (CLI) | payer OTHER ==
[2023-02-01 12:31] VITALS: BP 132/78
--- NOTE | 2023-02-01 12:31 | SLEEP CARE CONSULTATION ---
Information from patient questionnaire entered by Khris Wall. I have reviewed and concur with the information entered by Khris Wall. This document represents the service I personally performed and the decisions made by me, Milan Garcia MD, [facility]. History of Present Illness Service Date and Time: 02/01/2023 0937 Previous diagnosis: Moderate, Obstructive Sleep Apnea-Hypopnea Syndrome AHI: 21.0 (in 2019) Reason for follow up: annual (LAST SEEN 12/2020) Equipment type: CPAP (RESMED) Equipment obtained from: Other ([facility]) Mask style: Full face Prior sleep studies: Yes Year and Where: [facility], 2019 - [facility] ([facility]) HPI additional information: Ms. Figueroa was diagnosed to have moderate obstructive sleep apnea-hypopnea syndrome and prescribed with a CPAP device. She returned today for an annual follow up of CPAP therapy The patient purchased the device from [employer] and was fitted with a Respironics DreamWear full face mask. She continues to use the device nightly and all through the night. The compliance data show usage in 361 out of the past 365 nights, averaging 4.8 hours a night. The > 4 hour compliance rate for the past 30 days is 73% (she frequently takes the mask off unconsciously). She complains of slight soreness on her cheeks but no particular problem such as dry throat, aerophagia, sinus pain, or nasal congestion. She thinks that the current pressure of 8 - 15 cmH2O seems alright. The residual AHI is now 2.7. Average air leak is 0.9 L/minute. Sleep Study - Results Prior sleep studies: Yes Year and Where: [facility] 2019 - [facility] ([facility]) CPAP Compliance Data - Data Reviewed with Patient Average duration of nightly device use: 4HRS 34MINS Compliance rate %: 73 (08/02/22-01/28/23) Current pressure setting (cmH2O): 8-15 Average residual AHI: 2.6 Subjective Initial [place] Sleepiness Scale score: 8 (in 2019) Current [place] Sleepiness Scale score: 6 (02/01/23) Allergies and Home Medications Drug allergies reviewed: Yes Home medication list reviewed: Yes Allergy and home medication list: Allergies Penicillins Allergy (Verified 01/29/23 10:39) Unknown Sulfa (Sulfonamide Antibiotics) Allergy (Verified 01/29/23 10:39) Unknown adhesive tape Allergy (Uncoded 01/29/23 10:39) Rash Review of Systems Review of systems same as previous: Yes Physical Exam Vital signs obtained and entered by: KHRIS Page MA Blood Pressure: 132/78 (LEFT ARM) Cuff size: regular Heart Rate: 62 O2 Saturation: 98 Height: 5 ft 6 in Weight: 162 lb 12.8 oz Body Mass Index: 26.2 BMI Classification: Overweight Impression and Plan IMPRESSION: 1. Obstructive Sleep Apnea-Hypopnea Syndrome, moderate, with patient continuing to have good CPAP compliance. The current pressure setting appears effective and comfortable. No adjustment is necessary today except for her to try a nasal mask because she has no difficulty breathing through her nose. PLAN: 1. Continue with autoCPAP set at 8 - 15 cm H2O. 2. An prescription made for supplies and to let the durable medical supplier know that the patient would like to try a nasal mask. 3. Return for follow up in a year or earlier if there is any problem. Counseling Topics: Weight control Follow up with Sleep Care in: 1 year Visit Type: In Office Time Spent with Patient (minutes): 15 Provider Statement: I spent 100% of the Face to Face Visit with the patient with greater than 50% spent counseling the patient and coordination of care.
== END 2023-02-01 09:38 | disposition home or self-care (01) ==
LOC: SC 09:37
PROVIDERS: ATTEND Internal Medicine Pulmonary Disease
DX: G47.33 Obstructive sleep apnea (adult) (pediatric) (principal); E66.3 Overweight; Z68.26 Body mass index [BMI] 26.0-26.9, adult
CPT/HCPCS: 99212

== ENCOUNTER 2023-02-10 08:08 | Outpatient (CLI) | payer OTHER ==
--- NOTE | 2023-02-11 10:49 | Mammography Report ---
BILATERAL DIGITAL SCREENING MAMMOGRAM 3D/2D WITH EXAGGERATED CC: 02/10/2023 CLINICAL: Routine screening. Family history of breast cancer. Comparison is made to exams dated: 02/17/2021 mammogram, 03/03/2019 mammogram, 02/16/2018 mammogram - [facility], and 01/24/2016 mammogram - [facility]. Both breasts are heterogeneously dense, which may obscure small masses (category c / 51-75% glandular tissue). There are benign calcifications in the right breast. There also are benign post operative findings a nd biopsy clip in the right breast. Additionally, there are benign post operative findings in the le ft breast. No significant masses, calcifications, or other findings are seen in either breast. There has been no significant interval change. IMPRESSION: BENIGN There is no mammographic evidence of malignancy. A 1 year screening mammogram is recommended. Based on Tyrer-Cuzick model (a risk assessment model), the patient's lifetime risk is 22.6% and her 1 0 year risk is 9.5%. If a patient has an elevated risk, a more comprehensive evaluation should be con sidered and/or a referral to a genetic counselor. The [place] [employer], [place] [employer], and NCCN Guidelines advise the consideration of Breast MRI as an adjunct to screening mammog wilmar in patients whose "Lifetime risk to develop breast cancer" is 20% or higher. This exam was interpreted at Station ID: [id number]. NOTE: For mammograms, a report in lay terms will be sent to the patient. Approximately 15% of breast malignancies will not be visualized mammographically. In the management of a palpable breast mass, a negative mammogram must not discourage biopsy of a clinically suspicious lesion. Electronically Signed By: Nicolás mays/[email or web address]:02/10/2023 10:53:06 letter sent: No_Letter ACR BI-RADS Category 2: Benign Finding(s) 3342F PARENCHYMAL PATTERN: (D) - The breast(s) demonstrate(s) heterogeneously dense fibroglandular parsreedhary mitchell. BI-RADS CATEGORY: (2) - 2 Mammogram [id number] 1 year screening LATERALITY: (B)
== END 2023-02-10 08:09 | disposition home or self-care (01) ==
LOC: DI 08:08
DX: Z12.31 Encounter for screening mammogram for malignant neoplasm of breast (principal); Z80.3 Family history of malignant neoplasm of breast

== ENCOUNTER 2023-11-08 08:00 | Outpatient (CLI) | payer OTHER ==
--- NOTE | 2023-11-08 13:37 | DEXA Report ---
PROCEDURE: Dexa Spine and/or Hip INDICATIONS: POST MENOPAUSAL TECHNIQUE: Dual energy x-ray absorptiometry (DXA) was performed on a [employer] System. Regions measur ed are the AP Spine, femoral neck, and if needed forearm. COMPARISON: DEXA 09/12/2021 FINDINGS: Lumbar Spine: Bone Mineral Density 1.189 g/cm/cm,T score 0.1, compared to 0.2. Left Femoral Neck: Bone Mineral Density 0.946 g/cm/cm, T score -0.7, unchanged. Left Hip: Bone Mineral Density 0.994 g/cm/cm,T score -0.1, compared to -0.3. (T score greater or equal to -1.0: NORMAL) (T score from -1.1 to -2.4: OSTEOPENIA) (T score less than or equal to -2.5 to: OSTEOPOROSIS) Impression: By WHO criteria, this patient has normal bone density. Patients with diagnosis of osteoporosis or osteopenia should have regular bone mineral density assess ment. For those eligible for Medicare, routine testing is allowed once every 2 years. Testing frequ ency can be increased for patients who have rapidly progressing disease or for those who are receivin g medical therapy to restore bone mass. Reviewed by: Deidre Short MD on 11/08/2023 1:36 PM PST Approved by: Deidre Short MD on 11/08/2023 1:36 PM PST Station ID: [id number]
== END 2023-11-08 08:01 | disposition home or self-care (01) ==
LOC: DI 08:00
PROVIDERS: ATTEND Physician Assistant
DX: Z78.0 Asymptomatic menopausal state (principal)

== ENCOUNTER 2024-03-13 09:24 | Outpatient (CLI) | payer OTHER ==
--- NOTE | 2024-03-13 09:54 | SLEEP CARE CONSULTATION ---
Information from patient questionnaire entered by Khris Wall. I have reviewed and concur with the information entered by Khris Wall. This document represents the service I personally performed and the decisions made by me, Milan Garcia MD, [facility]. History of Present Illness Service Date and Time: 03/13/2024923 Previous diagnosis: Moderate, Obstructive Sleep Apnea-Hypopnea Syndrome AHI: 21.0 (in 2019) Reason for follow up: annual (LAST SEEN 01/2023) Equipment type: CPAP (RESMED) Equipment obtained from: Other ([employer] [facility]) Mask style: Full face Prior sleep studies: Yes Year and Where: [facility]2019 - [facility] ([facility]) HPI additional information: Ms. Figueroa was diagnosed to have moderate obstructive sleep apnea-hypopnea syndrome and prescribed with a CPAP device. She returned today for an annual follow up of CPAP therapy. The patient purchased the device from [employer] now wears a ResMed F30 full face mask instead of a Respironics DreamWear full face. She continues to use the device nightly but not all night. The compliance data show usage in 358 out of the past 365 nights, averaging 4.5 hours a night. The > 4 hour compliance rate for the past 30 days is 69% (she frequently takes the mask off unconsciously). She complains of occasional nose bleed. She thinks that the current pressure of 8 - 15 cmH2O seems alright. The residual AHI is now 2.4. Average air leak is 1.2 L/minute. The 90th percentile pressure is 12.1 cmH2O. [place] Sleepiness Scale score is 2. Sleep Study - Results Prior sleep studies: Yes Year and Where: [facility]2019 - [facility] ([facility]) CPAP Compliance Data - Data Reviewed with Patient Average duration of nightly device use: 4HRS 23MINS Compliance rate %: 56 (03/10/23-03/08/24) Current pressure setting (cmH2O): 8-15 Average residual AHI: 2.4 Subjective Initial [place] Sleepiness Scale score: 8 (in 2019) Current [place] Sleepiness Scale score: 2 (03/13/24) Allergies and Home Medications Drug allergies reviewed: Yes Home medication list reviewed: Yes Allergy and home medication list: Allergies Penicillins Allergy (Verified 03/09/24 09:10) Unknown Sulfa (Sulfonamide Antibiotics) Allergy (Verified 03/09/24 09:10) Unknown adhesive tape Allergy (Uncoded 03/09/24 09:10) Rash Review of Systems Review of systems same as previous: Yes (NO CHANGE) Physical Exam Vital signs obtained and entered by: KHRIS Page MA Blood Pressure: 139/87 (LEFT ARM) Cuff size: regular Heart Rate: 59 O2 Saturation: 99 Height: 5 ft 6 in Weight: 166 lb 9.6 oz Body Mass Index: 26.9 BMI Classification: Overweight Impression and Plan IMPRESSION: 1. Obstructive Sleep Apnea-Hypopnea Syndrome, moderate, with patient continuing to have good CPAP compliance. The current pressure setting appears effective and comfortable. No adjustment is necessary today except for her to turn up the humidity level. If there is condensation, then she should also turn up the tube heat. PLAN: 1. Continue with autoCPAP set at 8 - 15 cm H2O. 2. Increase the heated humidifier setting as needed. 3. Return for follow up in a year or earlier if there is any problem. Follow up with Sleep Care in: 1 year Visit Type: In Office Time Spent with Patient (minutes): 15 Provider Statement: I spent 100% of the Face to Face Visit with the patient with greater than 50% spent counseling the patient and coordination of care.
[2024-03-13 10:02] VITALS: BP 139/87; O2SAT 99
== END 2024-03-13 09:25 | disposition home or self-care (01) ==
LOC: SC 09:24
PROVIDERS: ATTEND Internal Medicine Pulmonary Disease
DX: G47.33 Obstructive sleep apnea (adult) (pediatric) (principal); E66.3 Overweight; Z68.26 Body mass index [BMI] 26.0-26.9, adult
CPT/HCPCS: 99212

== ENCOUNTER 2024-05-12 07:38 | Outpatient (CLI) | payer OTHER ==
[2024-05-12 08:12] LABS: CREATININE 0.8 mg/dL (0.6-1.3)
== END 2024-05-12 07:39 | disposition home or self-care (01) ==
LOC: LAB 07:38
PROVIDERS: ATTEND Physician Assistant
DX: Z12.39 Encounter for other screening for malignant neoplasm of breast (principal); Z91.89 Other specified personal risk factors, not elsewhere classified
CPT/HCPCS: 36415; 82565

== ENCOUNTER 2024-05-12 07:41 | Outpatient (CLI) | payer OTHER ==
--- NOTE | 2024-05-15 09:39 | Mammography Report ---
BILATERAL DIGITAL SCREENING MAMMOGRAM 3D/2D: 05/12/2024 CLINICAL: Routine screening. Comparison is made to exams dated: 02/10/2023 mammogram, 02/17/2021 mammogram, 03/03/2019 mammogram, mammogram - [facility], and 01/24/2016 mammogram - [facility]. Both breasts are heterogeneously dense, which may obscure small masses (category c / 51-75% glandular tissue). There are benign calcifications in the right breast. There also are benign post operative findings a nd biopsy clip in the right breast. Additionally, there are benign post operative findings in the le ft breast. No significant masses, calcifications, or other findings are seen in either breast. There has been no significant interval change. IMPRESSION: BENIGN There is no mammographic evidence of malignancy. A 1 year screening mammogram is recommended. Based on Tyrer-Cuzick model (a risk assessment model), the patient's lifetime risk is 22.2% and her 1 0 year risk is 9.6%. If a patient has an elevated risk, a more comprehensive evaluation should be con sidered and/or a referral to a genetic counselor. The [place] [employer], [employer], and NCCN Guidelines advise the consideration of Breast MRI as an adjunct to screening mammog wilmar in patients whose "Lifetime risk to develop breast cancer" is 20% or higher. This exam was interpreted at Station ID: [id number]. NOTE: For mammograms, a report in lay terms will be sent to the patient. Approximately 15% of breast malignancies will not be visualized mammographically. In the management of a palpable breast mass, a negative mammogram must not discourage biopsy of a clinically suspicious lesion. Electronically Signed By: Nicolás [email or web address]:05/12/2024 14:56:45 letter sent: No_Letter ACR BI-RADS Category 2: Benign Finding(s) 3342F PARENCHYMAL PATTERN: (D) - The breast(s) demonstrate(s) heterogeneously dense fibroglandular parsreedhary mitchell. BI-RADS CATEGORY: (2) - 2 RECOMMENDATION: (ANNUAL) - Recommend routine annual screening mammography. [id number] 1 year screening LATERALITY: (B)
== END 2024-05-12 07:42 | disposition home or self-care (01) ==
LOC: DI 07:41
PROVIDERS: ATTEND Physician Assistant
DX: Z12.31 Encounter for screening mammogram for malignant neoplasm of breast (principal); Z91.89 Other specified personal risk factors, not elsewhere classified; R92.333 Mammographic heterogeneous density, bilateral breasts; R92.1 Mammographic calcification found on diagnostic imaging of breast